=== PATIENT | male | born 1995 ===

== ENCOUNTER 2021-11-12 15:54 | Emergency (ER) | payer SELFPAY ==
[2021-11-13 16:55] LABS: SARS-CoV-2 PCR by NAA DETECTED (NotDetected)
== END 2021-11-12 20:18 | disposition home or self-care (01) ==
LOC: CSHERS 15:54
DX: U07.1 COVID-19 (principal)
CPT/HCPCS: 71045; 87081; 87430; 87804; U0003; U0005